=== PATIENT | female | born 1975 | race Caucasian/White ===

== ENCOUNTER → 2016-07-16 | Outpatient (CLI) | payer OTHER ==
[~2016-07-16] MED LIST: MTR600X PO; PRENTAB26 PO
== END | disposition home or self-care (01) ==
LOC: C.PAPS 09:55
PROVIDERS: ATTEND Obstetrics & Gynecology
DX: Z01.419 Encounter for gynecological examination (general) (routine) without abnormal findings (principal)

== ENCOUNTER → 2016-11-16 | Outpatient (CLI) | payer OTHER ==
[2016-11-16 16:32] LABS: BASO % 0.4 %; BASO ABS # 0.02 K/uL (0-0.2); COMPLETE YES; HEMATOCRIT 37.2 % (37-47); IG% 0.2 %; LYMPH % 23.8 %; LYMPH ABS # 1.34 K/uL (1.2-3.4); MEAN CELL VOLUME 90.1 fL (80-100); MEAN CORPUSCULAR HEMOGLOBIN 29.8 pg (25-34); MEAN CORPUSCULAR HGB CONC 33.1 g/dl (32-36); MEAN PLATELET VOLUME 9.5 fL (7.4-10.4); MONO % 7.1 %; NEUT % 66.5 %; PLATELET COUNT 163 K/uL (130-400); RED BLOOD COUNT 4.13 M/uL (4.2-5.4); WHITE BLOOD COUNT 5.64 K/uL (4.8-10.8)
[2016-11-16 17:08] LABS: BLOOD UREA NITROGEN 21 mg/dl (7-18); BUN/CREATININE RATIO 34.7 (10-20); CALCIUM 8.3 mg/dl (8.5-10.1); CARBON DIOXIDE 28 mmol/L (21-32); CHLORIDE 108 mmol/L (98-107); GLUCOSE 89 mg/dl (70-99); POTASSIUM 3.6 mmol/L (3.5-5.1); SODIUM 142 mmol/L (136-145)
[2016-11-16 17:18] LABS: ALB/GLOB RATIO 1.2 (0.9-2); ALKALINE PHOSPHATASE 67 U/L (45-117); ALT/SGPT 19 U/L (12-78); AST/SGOT 10 U/L (15-37); FERRITIN 29.9 ng/ml (8.0-388.0)
== END | disposition home or self-care (01) ==
LOC: C.LAB1850 15:35
PROVIDERS: ATTEND Nurse Practitioner Family
DX: R53.83 Other fatigue (principal); N92.0 Excessive and frequent menstruation with regular cycle

== ENCOUNTER 2017-07-22 10:53 | Emergency (ER) | payer OTHER ==
[2017-07-22 11:09] VITALS: BP 127/93; PULSE 67; TEMP 36.5; O2SAT 100
--- NOTE | 2017-07-22 11:18 | EMERGENCY ROOM VISIT NOTE ---
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 The injury happened at approximately 8:45 AM any surgical case. The patient reports that the wound did bleed well. She cleansed it well with soap and Betadine, then reinstalled her glove and continued with her case until completed. Tetanus immunization is up-to-date. The patient is left-hand dominant, and denies any discomfort. Source patient is Karyn Leigh. Review of Systems 10 system review was performed and was negative except for pertinent positives and negatives as indicated in history of present illness Past Medical/Surgical History Medical Problems: (1) No pertinent past medical history Family History No significant family history Social History Smoking Status: Never Smoker Drug Use: none Marital Status: Housing Status: lives with family Occupation Status: employed Current/Historical Medications Scheduled Multivit/Min/Iron/Fol Ac/Pren ( Vitamin), 1 TAB PO DAILY Scheduled PRN Ibuprofen (Ibuprofen), 600 MG PO Q4H PRN for Pain, PAL, Cramping, or Fever Physical Exam Vital Signs Date Time Temp Pulse Resp B/P (MAP) Pulse Ox O2 Delivery O2 Flow Rate FiO2 07/22/17 11:09 36.5 67 14 127/93 100 Room Air Physical Exam CONSTITUTIONAL: Healthy and well nourished. Alert and oriented X 3 with positive affect. HEENT: Normocephalic, atraumatic. Pupils equal, round and reactive. NECK: Full active range of motion without discomfort. MUSCULOSKELETAL: Examination shows a puncture wound to the right third finger digital pad. No active bleeding, ecchymosis or nail involvement noted. Capillary refill is less than 2 seconds. INTEGUMENTARY: No rash or other significant dermatologic conditions noted. NEUROLOGIC: Right third fingertip is sensory intact. Medical Decision & Procedures ED Course Patient history and physical exam were performed. Nurse's notes were reviewed. Vital signs were reviewed and were normal. The patient is currently in the postanesthesia recovery unit, and Dr. Tyler intends to discuss baseline testing with the patient. The patient is deferring HIV post exposure prophylaxis at this time. She was encouraged to return for further treatment with any positive rapid HIV testing. She was instructed to follow-up with [facility] to review further labs. The patient provided verbal consent for baseline HIV testing. Baseline labs were also drawn. The patient voiced understanding of all discharge instructions, and denied any discomfort at the time of discharge. Medical Decision Medication Reconcilliation Current Medication List: was personally reviewed by me Blood Pressure Screening Patient's blood pressure: Normal blood pressure Impression Primary Impression: Needle stick injury of finger of right hand Additional Impression: Work related injury Departure Information Dispostion Home / Self-Care Forms WORK / SCHOOL INSTRUCTIONS, HOME CARE DOCUMENTATION FORM, IMPORTANT VISIT INFORMATION Patient Instructions My [facility] [employer] Additional Instructions Watch for any signs of developing infection. Follow-up with [facility] to review further laboratory findings. Problem Qualifiers Primary Impression: Needle stick injury of finger of right hand Encounter type: initial encounter Qualified Codes: S61.239A - Puncture wound without foreign body of unspecified finger without damage to nail, initial encounter; W27.3XXA - Contact with needle (sewing), initial encounter
== END 2017-07-22 11:16 | disposition home or self-care (01) ==
LOC: EDBD 10:53 → EEVIPCON 10:56 → C.EDD 10:56
DX: S61.232A Puncture wound without foreign body of right middle finger without damage to nail, initial encounter (principal); W46.1XXA Contact with contaminated hypodermic needle, initial encounter; Y92.234 Operating room of hospital as the place of occurrence of the external cause; Y99.0 Civilian activity done for income or pay

== ENCOUNTER → 2017-08-27 | Outpatient (CLI) | payer OTHER ==
--- NOTE | 2017-08-29 07:51 | MAMMOGRAPHY REPORT ---
BILATERAL FIRST EVER DIGITAL SCREENING MAMMOGRAM TOMOSYNTHESIS WITH CAD AND TARGETED RIGHT ULTRASOUND : 08/27/2017 CLINICAL HISTORY: Baseline examination. TECHNIQUE: Bilateral breast tomosynthesis in addition to standard 2D mammography was performed. Curre nt study was also evaluated with a Computer Aided Detection (CAD) system. COMPARISON: No prior exams were available for comparison. BREAST COMPOSITION: The tissue of both breasts is heterogeneously dense, which may obscure small mas ses. FINDINGS: There are diffuse bilateral round and punctate microcalcifications scattered and a loose gr oupings, most likely representing a benign fibrocystic change. No discrete cluster of differing morp hology calcifications is identified bilaterally. No area of architectural distortion or asymmetry. There is a partially circumscribed and obscured 8 mm mass in the superior, middle to posterior left b reast on the MLO view (tomosynthesis slice 15/62), for which further evaluation with ultrasound was p erformed. Additionally, there are several right axillary lymph nodes visualized, which is asymmetric comparing to the left on the MLO views for which targeted ultrasound of the axillae was also perform ed. Given the above mammographic findings, diagnostic ultrasound was performed. Targeted ultrasound was performed in the superior left breast to assess for the partially circumscrib ed and obscured 8 mm mass, and also the right and left axilla to assess for the slightly prominent ri ght axillary lymph nodes, which are asymmetric comparing to the left. In the left 1:00 axis, 5 7 m f rom the nipple, there is a round circumscribed predominantly anechoic probable cyst. Along the media l aspect there are a few internal echoes, suggesting debris. No internal vascularity is demonstrated . This mass measures 8.1 x 7.1 x 7.4 mm. Other scattered probable cysts are identified in the left 12:00 and 1:00 periareolar regions, others of which contain internal debris, most likely representing complicated cysts. Although these findings most likely represent benign fibrocystic change, given t he internal echoes, a short interval follow-up targeted left breast ultrasound in the 12:00 and 1:00 axes is recommended to ensure stability in 6 months. There are a few morphologically normal lymph nodes within cortices identified in the left axilla. Ta rgeted ultrasound of the right axilla demonstrates at least 3 plump lymph nodes which demonstrate a d ifferent morphology comparing to the left, with slightly increased cortical thickness, although the m easurements are still within the range of normal. Given the asymmetry compared to the left, definiti ve characterization with tissue sampling is recommended. IMPRESSION: ACR BI-RADS CATEGORY 4: SUSPICIOUS, TARGETED ULTRASOUND ACR BI-RADS CATEGORY 4: SUSPICIO US 1. There are prominent right axillary lymph nodes compared to the left mammographically, that demons trate a plump appearance and slightly abnormal morphology on ultrasound. Although they could be reac tive, definitive characterization with ultrasound-guided core biopsy and/or FNA is recommended (45 mi nutes). 2. An 8 mm partially circumscribed and obscured round mass in the superior left breast is thought to correspond with a complicated cyst seen on ultrasound. A few of the probable cysts identified in the 12:00 and 1:00 axes of the left breast on ultrasound contain internal echoes, likely representing de bris and complicated cysts. However, given that they do not meet the criteria for simple cysts, a sh ort interval follow-up targeted left breast ultrasound is recommended in 6 months. These results and recommendations were discussed with the patient at the time of the exam. Approximately 10% of breast cancers are not detected with mammography. A negative mammographic report should not delay biopsy if a clinically suggestive mass is present. Dolores Mcmahon M.D. ay/:08/27/2017 17:05:08 Oxygen Equipment Aide: Stephanie LARA)(Loren), [facility] letter sent: Abnormal 4/5 BI-RADS Code: ACR BI-RADS Category 4: Suspicious Ultrasound BI-RADS: ACR BI-RADS Category 4: Suspici ous
== END | disposition home or self-care (01) ==
LOC: C.MAMM 16:21
PROVIDERS: ATTEND Obstetrics & Gynecology
DX: Z12.31 Encounter for screening mammogram for malignant neoplasm of breast (principal); R59.1 Generalized enlarged lymph nodes; N63.20 Unspecified lump in the left breast, unspecified quadrant

== ENCOUNTER → 2017-09-10 | Outpatient (CLI) | payer OTHER ==
[2017-09-10 13:17] LABS: BASO % 0.6 %; BASO ABS # 0.03 K/uL (0-0.2); HEMATOCRIT 39.2 % (37-47); HEMOGLOBIN 13.2 g/dL (12.0-16.0); IG# 0.01 K/uL (0.00-0.02); LYMPH % 29.8 %; LYMPH ABS # 1.47 K/uL (1.2-3.4); MEAN CELL VOLUME 88.9 fL (80-100); MEAN CORPUSCULAR HEMOGLOBIN 29.9 pg (25-34); MEAN CORPUSCULAR HGB CONC 33.7 g/dl (32-36); MEAN PLATELET VOLUME 9.4 fL (7.4-10.4); MONO % 4.3 %; MONO ABS # 0.21 K/uL (0.11-0.59); NEUT % 63.1 %; NEUT ABS # 3.12 K/uL (1.4-6.5); PLATELET COUNT 186 K/uL (130-400); RED CELL DISTRIBUTION WIDTH CV 13.3 % (11.5-14.5); RED CELL DISTRIBUTION WIDTH SD 43.2 fL (36.4-46.3); WHITE BLOOD COUNT 4.94 K/uL (4.8-10.8)
[2017-09-10 13:55] LABS: ALT/SGPT 15 U/L (12-78); BLOOD UREA NITROGEN 19 mg/dl (7-18); CALCIUM 8.6 mg/dl (8.5-10.1); CARBON DIOXIDE 28 mmol/L (21-32); CREATININE 0.71 mg/dl (0.60-1.20); GLUCOSE 132 mg/dl (70-99); POTASSIUM 3.8 mmol/L (3.5-5.1); SODIUM 137 mmol/L (136-145)
[2017-09-10 14:06] LABS: ALKALINE PHOSPHATASE 58 U/L (45-117); AST/SGOT 11 U/L (15-37); TOTAL PROTEIN 7.3 gm/dl (6.4-8.2)
== END | disposition home or self-care (01) ==
LOC: C.LAB1850 11:47
PROVIDERS: ATTEND Family Medicine
DX: R53.83 Other fatigue (principal); N92.0 Excessive and frequent menstruation with regular cycle; M25.50 Pain in unspecified joint; E55.9 Vitamin D deficiency, unspecified